=== PATIENT | female | born 1980 | race Caucasian/White ===

== ENCOUNTER 2017-11-06 15:19 | Emergency (ER) | payer OTHER ==
[~2017-11-06] VITALS: Ht 180.3 cm; Wt 92.5 kg
[~2017-11-06 15:19] MED LIST: HYDR-971 PO; ONDA4TAB10 SL
[2017-11-06 16:16] VITALS: BP 150/91
--- NOTE | 2017-11-06 16:24 | PHYS DOC ---
Past Medical History Past Medical History: Other Additional Past Medical Histor: PRE-ECLAMPSIA Past Surgical History: Alcohol Use: None Drug Use: Marijuana Adult General Chief Complaint Chief Complaint: VOMITING IN HPI HPI Patient is a 37 year old female 3 para 2 currently 21 weeks presenting to the ED today with nausea and vomiting in . Patient states symptoms have been going on for the last 3 days. Patient denies any abdominal pain. Denies any vaginal bleeding. Patient states she has Zofran at home which is not helping with her symptoms. Review of Systems Review of Systems Constitutional: Denies fever or chills [] Eyes: Denies change in visual acuity, redness, or eye pain [] HENT: Denies nasal congestion or sore throat [] Respiratory: Denies cough or shortness of breath [] Cardiovascular: No additional information not addressed in HPI [] GI: Reports nausea and vomiting in . Denies abdominal pain,bloody stools or diarrhea [] : Denies dysuria or hematuria [] Musculoskeletal: Denies back pain or joint pain [] Integument: Denies rash or skin lesions [] Neurologic: Denies headache, focal weakness or sensory changes [] All other systems were reviewed and found to be within normal limits, except as documented in this note. Current Medications Current Medications Current Medications Medications (Trade) Dose Ordered Sig/[facility] Start Time Stop Time Status Last Admin Dose Admin Ondansetron HCl (Zofran) 4 mg 1X ONCE 11/06/17 16:30 11/06/17 16:31 DC 11/06/17 16:26 4 MG Prochlorperazine Edisylate (Compazine) 10 mg 1X ONCE 11/06/17 16:30 11/06/17 16:31 DC 11/06/17 16:27 10 MG Sodium Chloride 1,000 ml @ 1,000 mls/hr 1X ONCE 11/06/17 16:30 11/06/17 17:29 DC 11/06/17 16:27 1,000 MLS/HR Allergies Allergies Allergies Coded Allergies Type Severity Reaction Last Updated Verified No Known Drug Allergies 12/14/16 No Physical Exam Physical Exam Constitutional: Well developed, well nourished, no acute distress, non-toxic appearance. [] HENT: Normocephalic, atraumatic, bilateral external ears normal, oropharynx moist, no oral exudates, nose normal. [] Eyes: PERRLA, EOMI, conjunctiva normal, no discharge. [] Neck: Normal range of motion, no tenderness, supple, no stridor. [] Cardiovascular:Heart rate regular rhythm, no murmur [] Lungs & Thorax: Bilateral breath sounds clear to auscultation [] Abdomen: Bowel sounds normal, soft, no tenderness, no masses, no pulsatile masses. [] Skin: Warm, dry, no erythema, no rash. [] Back: No tenderness, no CVA tenderness. [] Extremities: No tenderness, no cyanosis, no clubbing, ROM intact, no edema. [] Neurologic: Alert and oriented X 3, normal motor function, normal sensory function, no focal deficits noted. [] Psychologic: Affect normal, judgement normal, mood normal. [] Current Patient Data Vital Signs Vital Signs Date Time Temp Pulse Resp B/P (MAP) Pulse Ox O2 Delivery O2 Flow Rate FiO2 11/06/17 16:16 98.3 115 20 150/91 (110) 98 Room Air 98.3 Lab Values Laboratory Tests Test 11/06/17 16:12 11/06/17 16:17 11/06/17 16:21 Urine Collection Type Unknown Urine Color Delphine Urine Clarity Cloudy Urine pH 6.0 Urine Specific [place] >=1.030 Urine Protein 100 mg/dL (NEG-TRACE) Urine Glucose (UA) Negative mg/dL (NEG) Urine Ketones (Stick) >=80 mg/dL (NEG) Urine Blood Negative (NEG) Urine Nitrite Negative (NEG) Urine Bilirubin Small (NEG) Urine Urobilinogen Dipstick 0.2 mg/dL (0.2 mg/dL) Urine Leukocyte Esterase Trace (NEG) Urine RBC 1-2 /HPF (0-2) Urine WBC 1-4 /HPF (0-4) Urine Squamous Epithelial Cells Mod /LPF Urine Bacteria Moderate /HPF (0-FEW) Urine Hyaline Casts Occasional /HPF Urine Mucus Mod /LPF POC Urine HCG, Qualitative Hcg positive (Negative) White Blood Count 15.6 x10^3/uL (4.0-11.0) H Red Blood Count 4.83 x10^6/uL (3.50-5.40) Hemoglobin 14.4 g/dL (12.0-15.5) Hematocrit 41.4 % (36.0-47.0) Mean Corpuscular Volume 86 fL (79-100) Mean Corpuscular Hemoglobin 30 pg (25-35) Mean Corpuscular Hemoglobin Concent 35 g/dL (31-37) Red Cell Distribution Width 13.9 % (11.5-14.5) Platelet Count 552 x10^3/uL (140-400) H Neutrophils (%) (Auto) 83 % (31-73) H Lymphocytes (%) (Auto) 11 % (24-48) L Monocytes (%) (Auto) 5 % (0-9) Eosinophils (%) (Auto) 1 % (0-3) Basophils (%) (Auto) 0 % (0-3) Neutrophils # (Auto) 12.9 x10^3uL (1.8-7.7) H Lymphocytes # (Auto) 1.7 x10^3/uL (1.0-4.8) Monocytes # (Auto) 0.8 x10^3/uL (0.0-1.1) Eosinophils # (Auto) 0.1 x10^3/uL (0.0-0.7) Basophils # (Auto) 0.1 x10^3/uL (0.0-0.2) Segmented Neutrophils % 87 % (35-66) H Lymphocytes % 12 % (24-48) L Monocytes % 1 % (0-10) Platelet Estimate Increased (ADEQUATE) Sodium Level 137 mmol/L (136-145) Potassium Level 3.3 mmol/L (3.5-5.1) L Chloride Level 100 mmol/L (98-107) Carbon Dioxide Level 19 mmol/L (21-32) L Anion Gap 18 (6-14) H Blood Urea Nitrogen 12 mg/dL (7-20) Creatinine 0.5 mg/dL (0.6-1.0) L Estimated GFR (Cockcroft-Gault) 138.8 Glucose Level 110 mg/dL (70-99) H Calcium Level 9.8 mg/dL (8.5-10.1) Laboratory Tests 11/06/17 16:21 Laboratory Tests 11/06/17 16:21 Microbiology 11/06/17 Urine Culture - Final, Complete 11/06/17 Urine Culture Result 1 (ARIES) - Final, Complete EKG EKG [] Radiology/Procedures Radiology/Procedures [] Course & Med Decision Making Course & Med Decision Making Pertinent Labs and Imaging studies reviewed. (See chart for details) This is a 37-year-old female patient presenting to the ED today with nausea and vomiting in . Symptoms began 3 days ago, she is a 3 para 2. Currently 21 weeks . No vaginal bleeding. No abdominal pain. Urine analysis is negative for infection, urine analysis is noted for dehydration. CBC with WBC of 15.6 likely from dehydration, BMP with nothing really acute. Patient was given IV fluids in the ED with Zofran and Compazine. Symptoms have subsided. She has no abdominal pain. She is discharged to home to follow up with her PRINCIPAL ARCHITECT as soon as possible. Discharge her with Compazine. OB nurse will check FHT prior to d/c Dragon Disclaimer Dragon Disclaimer This electronic medical record was generated, in whole or in part, using a voice recognition dictation system. Departure Departure Impression: Primary Impression: Hyperemesis gravidarum Disposition: HOME, SELF-CARE Condition: STABLE Referrals: NO PCP (PCP) Follow-up with your PRINCIPAL ARCHITECT as soon as possible TIANNA MARTINEZ MD Patient Instructions: Diet - Hyperemesis Gravidarum, Hyperemesis Gravidarum Additional Instructions: You were evaluated in the emergency room for nausea and vomiting in . Take the prescribed nausea medicine as needed. Push fluids. Follow-up with your doctor in the course of this week or next week. Come back to the ED at any point symptoms worsen. Scripts Prochlorperazine Maleate (Compazine) 10 Mg Tablet 10 MG PO TID, #60 TAB Prov: SHANELL NUNES APRN 11/06/17 Attending Signature Attending Signature I have reviewed the PA/MEASUREMENT OPERATOR's note and plan of care. I was available for consultation as needed during the patient's visit in the emergency department. I agree with the clinical impression, plan, and disposition. SHANELL NUNES APRN Nov 06, 2017 16:24 COLT SHANNON DO Nov 12, 2017 16:49
[2017-11-06 16:30] LABS: BASO # 0.1 x10^3/uL (0.0-0.2); BASO % 0 % (0-3); EOS # 0.1 x10^3/uL (0.0-0.7); EOS % 1 % (0-3); HEMATOCRIT 41.4 % (36.0-47.0); HEMOGLOBIN 14.4 g/dL (12.0-15.5); LYMPH # 1.7 x10^3/uL (1.0-4.8); LYMPH % 11 % (24-48); MEAN CORPUSCULAR HEMOGLOBIN 30 pg (25-35); MEAN CORPUSCULAR HGB CONC 35 g/dL (31-37); MEAN CORPUSCULAR VOLUME 86 fL (79-100); MONO # 0.8 x10^3/uL (0.0-1.1); MONO % 5 % (0-9); NEUT # 12.9 x10^3uL (1.8-7.7); NEUT % 83 % (31-73); PLATELET COUNT 552 x10^3/uL (140-400); RED BLOOD COUNT 4.83 x10^6/uL (3.50-5.40); RED CELL DISTRIBUTION WIDTH 13.9 % (11.5-14.5); WHITE BLOOD COUNT 15.6 x10^3/uL (4.0-11.0)
[2017-11-06] MEDS ORDERED: IV NORMAL SALINE 1000ML BAG 1,000 ML IV ONE (16:30)
[2017-11-06] MEDS ORDERED: PROCHLORPERAZINE 10 MG/2 ML VIAL. IV ONE (16:30)
[2017-11-06] MEDS ORDERED: ONDANSETRON PF 4 MG/2 ML VIAL. IV ONE (16:30)
[2017-11-06 16:32] LABS: BILIRUBIN,URINE SMALL (NEG); CLARITY,URINE CLOUDY; COLOR,URINE AMBER; NITRITE,URINE NEGATIVE (NEG); PROTEIN,URINE 100 mg/dL (NEG-TRACE); UROBILINOGEN,URINE 0.2 mg/dL (0.2 mg/dL)
[2017-11-06 16:38] LABS: CALCIUM 9.8 mg/dL (8.5-10.1); CREATININE 0.5 mg/dL (0.6-1.0); GFR 138.8; POTASSIUM 3.3 mmol/L (3.5-5.1)
[2017-11-06 16:53] LABS: BACTERIA,URINE MODERATE /HPF (0-FEW); HYALINE CASTS, URINE OCCASIONAL /HPF; SQUAMOUS EPITHELIAL CELL,UR MOD /LPF
[2017-11-06 17:05] LABS: % LYMPHS 12 % (24-48); % MONOS 1 % (0-10); % SEGS 87 % (35-66)
[2017-11-06 17:07] LABS: PLT ESTIMATE INCREASED (ADEQUATE)
[2017-11-06] MEDS ORDERED: PROC10TA57 PO (17:34)
== END 2017-11-06 17:50 | disposition home or self-care (01) ==
LOC: ER 15:19
DX: O21.0 Mild hyperemesis gravidarum (principal); Z3A.21 21 weeks gestation of pregnancy
CPT/HCPCS: 36415; 80048; 81001; 81025; 85007; 85025; 87086; 96361; 96374; 96375; 99284; J0780; J2405; J7030